=== PATIENT | male | born 1955 | race Caucasian/White ===

== ENCOUNTER 2016-06-29 11:06 | Inpatient (IN) | payer BC ==
[2016-06-29] MEDS ORDERED: HEPARIN SODIUM,PORCINE 5,000 UNIT/ML 1 ML VIAL IV PRN ×2 (11:09→19:34)
[2016-06-29] MEDS ORDERED: SODIUM CHLORIDE 0.9% 1,000 ML IV STA (11:09)
[2016-06-29] MEDS ORDERED: NITROGLYCERIN SL TABS 0.4 MG TAB SUBLINGUAL PRN (11:09)
[2016-06-29] MEDS ORDERED: MORPHINE SULFATE 4 MG/ML SYRINGE IV PRN (11:09)
[2016-06-29] MEDS ORDERED: NITROGLYCERIN SL TABS 0.4 MG TAB SUBLINGUAL STA (11:09)
[2016-06-29] MEDS ORDERED: ASPIRIN 81 MG CHEW PO STA (11:09)
[2016-06-29] MEDS ORDERED: HEPARIN SODIUM,PORCINE 5,000 UNIT/ML 1 ML VIAL IV ONE ×2 (11:09→19:34)
[2016-06-29] MEDS ORDERED: HEPARIN SODIUM,PORCINE/D5W PMX 25,000 UNIT in DEXTROSE/WATER 1 500ML.BAG IV SCH ×2 (11:15→20:00)
[2016-06-29] MEDS ORDERED: LIDOCAINE 2% INJ 20 MG/ML (20 ML MDV) ONE (11:16)
[2016-06-29] MEDS ORDERED: SODIUM CHLORIDE 0.9% 1,000 ML IV ONE (11:26)
--- NOTE | 2016-06-29 11:27 | ED ---
General Adult HPI - General Chief complaint: Chest Pain Stated complaint: Chest Pain Time Seen by Provider: 06/29/16 11:08 Source: patient, RN notes reviewed, old records reviewed Mode of arrival: EMS Limitations: no limitations - History of Present Illness Initial comments: This is a 61-year-old male year with severe anterior chest pain. Patient is brought in by EMS for chest pain, severe anterior chest pain and heaviness, diaphoresis and shortness of breath. Patient does have my blood pressure. No recent cardiac evaluation. Patient is an severe distress at this time, unable to give history secondary to significant pain. History obtained from EMS as well as prehospital EKG showing ST elevated VA - Related Data Home Medications Medication Instructions Recorded Confirmed ALPRAZolam [Xanax] 1 mg PO DAILY PRN 06/29/16 06/29/16 Terbinafine HCl [LamISIL] 250 mg PO DAILY 06/29/16 06/29/16 traZODone HCL 150 mg PO HS PRN 06/29/16 06/29/16 Allergies Allergy/AdvReac Type Severity Reaction Status Date / Time No Known Allergies Allergy Verified 06/29/16 11:21 Review of Systems ROS Statement: Those systems with pertinent positive or pertinent negative responses have been documented in the HPI. ROS Other: All systems not noted in ROS Statement are negative. Past Medical History Past Medical History: Hypertension Additional Past Medical History / Comment(s): toe fungal infection History of Any Multi-Drug Resistant Organisms: None Reported Past Surgical History: Hernia Repair Past Psychological History: Anxiety Smoking Status: Current every day smoker Past Alcohol Use History: None Reported Past Drug Use History: None Reported - Past Family History Father Family Medical History: COPD Additional Family Medical History / Comment(s): Father of emphysema at the age of 63yrs. Mother Family Medical History: No Reported History Additional Family Medical History / Comment(s): Mother lived to be 91 yrs old. General Exam Limitations: no limitations General appearance: alert, in no apparent distress, anxious Head exam: Present: atraumatic, normocephalic, normal inspection Eye exam: Present: normal appearance, PERRL, EOMI. Absent: scleral icterus, conjunctival injection, periorbital swelling ENT exam: Present: normal exam, mucous membranes moist Neck exam: Present: normal inspection. Absent: tenderness, meningismus, lymphadenopathy Respiratory exam: Present: normal lung sounds bilaterally. Absent: respiratory distress, wheezes, rales, rhonchi, stridor Cardiovascular Exam: Present: regular rate, normal rhythm, normal heart sounds. Absent: systolic murmur, diastolic murmur, rubs, gallop, clicks GI/Abdominal exam: Present: soft, normal bowel sounds. Absent: distended, tenderness, guarding, rebound, rigid Extremities exam: Present: normal inspection, full ROM, normal capillary refill. Absent: tenderness, pedal edema, joint swelling, calf tenderness Back exam: Present: normal inspection Neurological exam: Present: alert, oriented X3, CN II-XII intact Psychiatric exam: Present: normal affect, normal mood Skin exam: Present: warm, dry, intact, normal color. Absent: rash Course Vital Signs 06/29/16 06/29/16 11:05 11:15 Pulse Rate 46 L 46 L Respiratory 20 20 Rate Blood Pressure 124/65 122/66 O2 Sat by Pulse 96 96 Oximetry EKG Findings - EKG Comments: EKG Findings:: EKG shows sinus bradycardia rate of 53, TX normal, QRS wide, patient does have ST elevation in II, III, and F aVF, peak T waves in V3 V4 V5 V6 and ST depression in V1 and V2 Medical Decision Making - Medical Decision Making 61 year for evaluation of chest pain, elevated VA on EKG, patient admitted for the clinical laboratory aides teacher first cardiology intervention and treatment, anticoagulation, patient given aspirin - Lab Data Result diagrams: 07/02/16 06:26 07/02/16 06:26 Lab Results 06/29/16 06/29/16 06/29/16 Range/Units 11:17 11:17 11:17 WBC 14.0 H (3.8-10.6) k/uL RBC 5.03 (4.30-5.90) m/uL Hgb 15.8 (13.0-17.5) gm/dL Hct 46.2 (39.0-53.0) % MCV 91.8 (80.0-100.0) fL MCH 31.4 (25.0-35.0) pg MCHC 34.2 (31.0-37.0) g/dL RDW 13.0 (11.5-15.5) % Plt Count 210 (150-450) k/uL Neutrophils % 79 % Lymphocytes % 13 % Monocytes % 4 % Eosinophils % 1 % Basophils % 1 % Neutrophils # 11.0 H (1.3-7.7) k/uL Lymphocytes # 1.9 (1.0-4.8) k/uL Monocytes # 0.5 (0-1.0) k/uL Eosinophils # 0.2 (0-0.7) k/uL Basophils # 0.1 (0-0.2) k/uL PT (9.0-12.0) sec INR (<1.1) APTT (22.0-30.0) sec Sodium 142 (137-145) mmol/L Potassium 3.2 L (3.5-5.1) mmol/L Chloride 103 (98-107) mmol/L Carbon Dioxide 27 (22-30) mmol/L Anion Gap 12 mmol/L BUN 17 (9-20) mg/dL Creatinine 1.10 (0.66-1.25) mg/dL Est GFR (MDRD) Af Amer >60 (>60 ml/min/1.73 sqM) Est GFR (MDRD) Non-Af >60 (>60 ml/min/1.73 sqM) Glucose 202 H (74-99) mg/dL Estimated Ave Glu mg/dL mg/dL Hemoglobin A1c (4.2-6.1) % Calcium 9.4 (8.4-10.2) mg/dL Total Bilirubin 0.7 (0.2-1.3) mg/dL AST 43 (17-59) U/L ALT 84 H (21-72) U/L Alkaline Phosphatase 75 (38-126) U/L Total Creatine Kinase 193 H (55-170) U/L CK-MB (CK-2) 1.6 (0.0-2.4) ng/mL CK-MB (CK-2) Rel Index 0.8 Troponin I <0.012 (0.000-0.034) ng/mL Total Protein 7.0 (6.3-8.2) g/dL Albumin 4.2 (3.5-5.0) g/dL 06/29/16 06/29/16 Range/Units 11:17 11:17 WBC (3.8-10.6) k/uL RBC (4.30-5.90) m/uL Hgb (13.0-17.5) gm/dL Hct (39.0-53.0) % MCV (80.0-100.0) fL MCH (25.0-35.0) pg MCHC (31.0-37.0) g/dL RDW (11.5-15.5) % Plt Count (150-450) k/uL Neutrophils % % Lymphocytes % % Monocytes % % Eosinophils % % Basophils % % Neutrophils # (1.3-7.7) k/uL Lymphocytes # (1.0-4.8) k/uL Monocytes # (0-1.0) k/uL Eosinophils # (0-0.7) k/uL Basophils # (0-0.2) k/uL PT 11.0 (9.0-12.0) sec INR 1.1 (<1.1) APTT 21.4 L (22.0-30.0) sec Sodium (137-145) mmol/L Potassium (3.5-5.1) mmol/L Chloride (98-107) mmol/L Carbon Dioxide (22-30) mmol/L Anion Gap mmol/L BUN (9-20) mg/dL Creatinine (0.66-1.25) mg/dL Est GFR (MDRD) Af Amer (>60 ml/min/1.73 sqM) Est GFR (MDRD) Non-Af (>60 ml/min/1.73 sqM) Glucose (74-99) mg/dL Estimated Ave Glu mg/dL 128 mg/dL Hemoglobin A1c 6.1 (4.2-6.1) % Calcium (8.4-10.2) mg/dL Total Bilirubin (0.2-1.3) mg/dL AST (17-59) U/L ALT (21-72) U/L Alkaline Phosphatase (38-126) U/L Total Creatine Kinase (55-170) U/L CK-MB (CK-2) (0.0-2.4) ng/mL CK-MB (CK-2) Rel Index Troponin I (0.000-0.034) ng/mL Total Protein (6.3-8.2) g/dL Albumin (3.5-5.0) g/dL - Radiology Data Radiology results: report reviewed (Chest x-ray is negative for acute disease), image reviewed Critical Care Time Critical Care Time: Yes Total Critical Care Time: 31 Disposition Clinical Impression: ST elevation myocardial infarction (STEMI) Disposition: ADMITTED IP TO THIS HOSP Condition: Serious
[2016-06-29] MEDS ORDERED: LIDOCAINE 2% INJ 20 MG/ML SQ ONE (11:31)
[2016-06-29] MEDS ORDERED: fentaNYL (PF) 50 MCG/ML 2 ML AMP ONE (11:39)
[2016-06-29] MEDS ORDERED: fentaNYL (PF) 50 MCG/ML 2 ML AMP IV ONE (11:40)
[2016-06-29] MEDS ORDERED: BIVALIRUDIN BOLUS 250 MG/50 ML IV ONE (11:42)
[2016-06-29] MEDS ORDERED: BIVALIRUDIN 250 MG in SODIUM CHLORIDE 0.9% 50 ML IV ONE ×2 (11:43→12:14)
[2016-06-29 11:45] LABS: ALT 84 U/L (21-72); AST 43 U/L (17-59); Alkaline Phosphatase 75 U/L (38-126); Anion Gap 12 mmol/L; Blood Urea Nitrogen 17 mg/dL (9-20); Calcium 9.4 mg/dL (8.4-10.2); Carbon Dioxide 27 mmol/L (22-30); Chloride 103 mmol/L (98-107); Glucose 202 mg/dL (74-99); Non-African American GFR(MDRD) >60 (>60 ml/min/1.73 sqM); Potassium 3.2 mmol/L (3.5-5.1); Sodium 142 mmol/L (137-145); Total Bilirubin 0.7 mg/dL (0.2-1.3)
[2016-06-29 11:48] LABS: Basophils # (A) 0.1 k/uL (0-0.2); Basophils % (A) 1 %; CH 31.7; CHCM 34.6; Eosinophils # (A) 0.2 k/uL (0-0.7); Eosinophils % (A) 1 %; HCT 46.2 % (39.0-53.0); HDW 2.79; HGB 15.8 gm/dL (13.0-17.5); Luc # (Auto) 0.34; Luc % (Auto) 2; Lymphocytes # (A) 1.9 k/uL (1.0-4.8); Lymphocytes % (A) 13 %; MCH 31.4 pg (25.0-35.0); MCHC 34.2 g/dL (31.0-37.0); MCV 91.8 fL (80.0-100.0); Mean Platelet Volume 8.3; Monocytes # (A) 0.5 k/uL (0-1.0); Monocytes % (A) 4 %; Neutrophils % (A) 79 %; RBC 5.03 m/uL (4.30-5.90); WBC (Perox) 13.61
[2016-06-29 11:49] LABS: INR 1.1 (<1.1)
[2016-06-29] MEDS ORDERED: METOPROLOL TARTRATE 5 MG/5 ML VIAL IVP ONE (11:52)
[2016-06-29 11:54] LABS: Creatine Kinase 193 U/L (55-170)
[2016-06-29] MEDS: METOPROLOL TARTRATE 5 MG/5 ML VIAL IVP ONE ×2 (11:54→12:38)
[2016-06-29 12:06] LABS: Creatine Kinase MB 1.6 ng/mL (0.0-2.4); Troponin I <0.012 ng/mL (0.000-0.034)
[2016-06-29] MEDS ORDERED: NOREPINEPHRINE 4 MG in SODIUM CHLORIDE 0.9% 250 ML IV ONE (12:07)
[2016-06-29] MEDS ORDERED: PRASUGREL 10 MG TAB ONE (12:22)
[2016-06-29] MEDS ORDERED: PRASUGREL 10 MG TAB PO ONE (12:24)
[2016-06-29] MEDS ORDERED: NITROGLYCERIN 1000MCG/10ML SYRINGE INTRACORON ONE (12:30)
[2016-06-29] MEDS ORDERED: IOHEXOL 350 MG/ML 100 ML BOTTLE INJ ONE (12:39)
[2016-06-29] MEDS ORDERED: ATROPINE SULFATE 0.1 MG/ML 10ML SYRINGE IV PRN (12:46)
[2016-06-29] MEDS ORDERED: RX INFO: IV CONTRAST WAS GIVEN 1 EACH MISC MISCELLANE PRN (12:46)
[2016-06-29] MEDS ORDERED: FAMOTIDINE 20 MG TAB PO PRN (12:46)
[2016-06-29] MEDS ORDERED: HYDROmorphone 1 MG/ML 1 ML SYRINGE IVP PRN (12:46)
[2016-06-29] MEDS ORDERED: MAG HYDROX/AL HYDROX/SIMETH 30 ML CUP PO PRN (12:46)
[2016-06-29 12:52] LABS: Partial Thromboplastin Time 21.4 sec (22.0-30.0)
[2016-06-29] MEDS ORDERED: NON-FORMULARY DRUG (Alprazolam [Xanax] 1 MG) PO PRN (12:56)
--- NOTE | 2016-06-29 12:56 | XR ---
EXAMINATION TYPE: XR chest 1V portable DATE OF EXAM: 06/29/2016 12:52 PM COMPARISON: 04/01/2012 HISTORY: Chest pain TECHNIQUE: Single frontal view of the chest is obtained. FINDINGS: There is no focal air space opacity, pleural effusion, or pneumothorax seen. The cardiac silhouette size is within normal limits. The osseous structures are intact. Linear density right mi dlung typical of scar or atelectasis. Arthropathy of the shoulders IMPRESSION: No acute process.
[2016-06-29 13:07] LABS: Glucose,Whole Blood 180 mg/dL (75-99)
[2016-06-29] MEDS: METOPROLOL TARTRATE 25 MG TAB PO SCH ×2 (13:27→21:54)
[2016-06-29] MEDS: SODIUM CHLORIDE 0.9% 1,000 ML IV SCH ×3 (13:28→23:50)
--- NOTE | 2016-06-29 15:49 | CONS ---
DATE OF CONSULTATION: Patient is a 61-year-old gentleman. Referring physician Dr. Myles. The patient is going to be admitted to Dr. Deras's service. Patient is a known patient of long-standing history of depression and has been on trazodone 150 mg along with Xanax. Patient is a smoker, smokes less than 1 pack of cigarettes and lives alone by himself. Patient started having chest heaviness and tightness and some weakness, not feeling well at 9:30 and presented to the emergency room close to 11:00. Patient's EKG shows acute ST elevations in inferior leads consistent with acute inferior myocardial wall infarction. With stable vital signs patient is not complaining of severe pain, but feels very weak and tired. Patient is not known to be diabetic and claims he has been known to have hypertension, but I do not see any medications for hypertension he is taking currently. Patient does not have any strong family history of coronary artery disease. No history of diabetes and patient's coronary risk factors are patient's age, history of smoking, questionable hypertension, do not know about hyperlipidemia. No family history of premature coronary artery disease. Past history is unremarkable other than history of smoking, history of depression and questionable history of hypertension. Do not know about hyperlipidemia. REVIEW OF SYSTEMS: Essentially unremarkable other than what is stated in the presenting illness. Physical examination revealed well-developed, well-nourished 61-year-old gentleman, who appears weak and tired with mild distress and does not appear to be diaphoretic with stable vital signs with a pulse rate of 54 beats per minute and regular, blood pressure 122/70, respirations of 18. HEAD: Normocephalic. HEENT unremarkable. Neck is supple. No thyroid enlargement. No bruit noted. Good carotid upstroke bilaterally. Chest is symmetrical. CARDIAC EXAMINATION: S1 and S2. S4 gallop is noted. No significant murmurs and S2. Lungs are clinically clear to auscultation and percussion. Abdomen is soft, no organomegaly. Active bowel sounds. EXTREMITIES: Peripheral pulses. No pedal edema. ASSURANCE ANALYST examination grossly within normal limits. EKG shows normal sinus rhythm with ST elevation in inferior leads, consistent with inferior myocardial infarction. ASSESSMENT: 1. Acute inferior myocardial infarction. 2. History of hypertension. 3. History of depression. 4. History of long-standing history of smoking less than 1 pack of cigarettes a day. RECOMMENDATIONS: Proceed with cardiac catheterization and primary angioplasty of the involved vessel.
[2016-06-29 16:09] LABS: Hemoglobin A1C 6.1 % (4.2-6.1)
[2016-06-29] MEDS: ALPRAZolam 0.25 MG TAB PO PRN (19:51)
--- NOTE | 2016-06-29 20:15 | HP ---
DATE OF ADMISSION: Patient is a very pleasant 61-year-old gentleman who came in with complaint of chest pain along with associated diaphoresis associated with nausea and ( ). Patient was found to have ST elevations in the inferior leads including lead II, III and aVF. Patient underwent cardiac catheterization and had three stents to RCA. Patient was bradycardic because of the infarction in the RCA territory. Poststenting the patient became tachycardic and patient was started on metoprolol now. Patient ( ) metoprolol ( ) mildly tachycardic. Patient is mildly tachycardic. Patient underwent cardiac catheterization through right groin area and right femoral vasculature. Patient denied any fevers or chills. Patient denied any nausea, vomiting. Patient just ( ) at this point of time. Patient denied any shortness of breath. REVIEW OF SYSTEMS: CONSTITUTIONAL: No fever, no malaise, no fatigue. HEENT: No recent visual problems or hearing problems. Denied any sore throat. CARDIOVASCULAR: No chest pain, orthopnea, PND, no palpitations, no syncope. PULMONARY: No shortness of breath, no cough, no hemoptysis. GASTROINTESTINAL: No diarrhea, no nausea, no vomiting, no abdominal pain. Normoactive bowel sounds. NEUROLOGICAL: No headaches, no weakness, no numbness. HEMATOLOGICAL: Denies any bleeding or petechiae. GENITOURINARY: Denies any burning micturition, frequency, or urgency. MUSCULOSKELETAL/RHEUMATOLOGICAL: Denies any joint pain, swelling, or any muscle pain. ENDOCRINE: Denies any polyuria or polydipsia. The rest of the 14 point review of systems is negative. PAST MEDICAL HISTORY: Significant for hypertension, hernia repair in the past, anxiety disorder. SOCIAL HISTORY: The patient does smoke a pack per day. Denied any alcohol abuse or any drug abuse. FAMILY HISTORY: Significant for coronary artery disease. PHYSICAL EXAMINATION: VITAL SIGNS: Temperature afebrile, pulse of 46 on admission, now around 106, respiratory rate 20, saturation 95% on room air. GENERAL: The patient is alert and oriented x3, not in any acute distress. Well developed, well nourished. HEENT: Pupils are round and equally reacting to light. EOMI. No scleral icterus. No conjunctival pallor. Normocephalic, atraumatic. No pharyngeal erythema. No thyromegaly. CARDIOVASCULAR: S1 and S2 present. No murmurs, rubs, or gallops. PULMONARY: Chest is clear to auscultation, no wheezing or crackles. ABDOMEN: Soft, nontender, nondistended, normoactive bowel sounds. No palpable organomegaly. MUSCULOSKELETAL: No joint swelling or deformity. EXTREMITIES: No cyanosis, clubbing, or pedal edema. NEUROLOGICAL: Gross neurological examination did not reveal any focal deficits. SKIN: No rashes. LABORATORY DATA: CBC and CMP essentially within normal limits. The patient has elevated troponins. EKG as mentioned above. ASSESSMENT AND PLAN: 1. ( ) myocardial infarction status post stenting of right coronary artery and patient is presenting on dual antiplatelet therapy, which includes prasugrel and metoprolol and statin. Patient is also on isuprel for borderline blood pressures. 2. Hypertension. 3. Anxiety disorder. 4. Hyperlipemia. PLAN: Continue with above mentioned medications. Continue to monitor closely. Continue with beta bianca. Obtain an echocardiogram.
[2016-06-29] MEDS: DILTIAZEM 125 MG in SODIUM CHLORIDE 0.9% 100 ML IV SCH (20:54)
[2016-06-29] MEDS: ZOLPIDEM 5 MG TAB PO PRN (22:03)
[2016-06-29] MEDS ORDERED: Magnesium Replacement Protocol 1 EACH MISC MISCELLANE PRN (23:39)
[2016-06-29] MEDS: MAGNESIUM SULFATE-D5W PMX 1 GM in DEXTROSE/WATER 1 100ML.BAG IVPB SCH (23:50)
[2016-06-30] MEDS: ALPRAZolam 0.25 MG TAB PO PRN ×2 (00:21→20:07)
[2016-06-30] MEDS: MAGNESIUM SULFATE-D5W PMX 1 GM in DEXTROSE/WATER 1 100ML.BAG IVPB SCH (01:00)
[2016-06-30 03:52] LABS: Basophils % (A) 0 %; Eosinophils # (A) 0.1 k/uL (0-0.7); Eosinophils % (A) 1 %; HCT 40.3 % (39.0-53.0); HDW 2.63; HGB 13.6 gm/dL (13.0-17.5); Luc # (Auto) 0.17; Luc % (Auto) 2; Lymphocytes # (A) 1.5 k/uL (1.0-4.8); Lymphocytes % (A) 17 %; MCH 30.9 pg (25.0-35.0); MCHC 33.7 g/dL (31.0-37.0); MCV 91.5 fL (80.0-100.0); Mean Platelet Volume 7.9; Monocytes # (A) 0.6 k/uL (0-1.0); Monocytes % (A) 6 %; Neutrophils # (A) 6.9 k/uL (1.3-7.7); Neutrophils % (A) 75 %; RDW 13.2 % (11.5-15.5); WBC 9.2 k/uL (3.8-10.6); WBC (Perox) 9.82
[2016-06-30 04:13] LABS: Anion Gap 8 mmol/L; Blood Urea Nitrogen 22 mg/dL (9-20); Calcium 8.5 mg/dL (8.4-10.2); Carbon Dioxide 28 mmol/L (22-30); Chloride 104 mmol/L (98-107); Cholesterol 181 mg/dL (<200); Glucose 133 mg/dL (74-99); HDL Cholesterol 30 mg/dL (40-60); Magnesium 2.3 mg/dL (1.6-2.3); Non-African American GFR(MDRD) >60 (>60 ml/min/1.73 sqM); Potassium 3.6 mmol/L (3.5-5.1); Sodium 140 mmol/L (137-145); Triglycerides 205 mg/dL (<150)
[2016-06-30] MEDS ORDERED: HEPARIN SODIUM,PORCINE 5,000 UNIT/ML 1 ML VIAL IV STA (04:14)
[2016-06-30] MEDS ORDERED: Potassium Replacement Protocol 1 EACH MISC MISCELLANE PRN (04:20)
[2016-06-30] MEDS: SODIUM CHLORIDE 0.9% 1,000 ML IV SCH ×2 (04:27→15:04)
[2016-06-30] MEDS ORDERED: POTASSIUM CHLORIDE ER 20 MEQ TAB.ER PO SCH (05:00)
[2016-06-30] MEDS: ATORVASTATIN 80 MG TAB PO SCH (08:00)
[2016-06-30] MEDS: METOPROLOL TARTRATE 25 MG TAB PO SCH ×2 (08:01→20:07)
[2016-06-30] MEDS: PRASUGREL 10 MG TAB PO SCH (08:01)
[2016-06-30] MEDS: ASPIRIN 325 MG TAB PO SCH (08:01)
--- NOTE | 2016-06-30 08:04 | CC ---
DATE OF SERVICE: Referring physicians are Dr. Deras and Dr. Myles. Patient presented with acute inferior myocardial infarction to the emergency room with ST elevation in the inferior leads. Patient is a smoker and hypertensive, has been taking amlodipine 5 mg p.o. daily along with trazodone and Xanax. Patient was brought to the laborer laboratory for primary angioplasty and patient was informed of all the risks and benefits of the procedure along with I spoke with the son at length. Patient lives alone. PROCEDURE: Under local anesthesia, the femoral artery was cannulated using Seldinger technique. Patient was given conscious sedation, lasting about 1 hour 10 minutes total until the procedure is completed. Patient tolerated the procedure very well. After obtaining the femoral axis and 6 [place] sheath is placed and we proceeded with a diagnostic cardiac catheterization followed by angioplasty and stenting of the right coronary in multiple locations including ( ) that was noted in the distal half of the right coronary which is a large caliber blood vessel, which is totally occluded in the midsection. Patient tolerated the procedure very well. HEMODYNAMIC DATA: Aortic pressure noted to be 119/62 with a mean pressure of 179. Left ventricular end-diastolic pressure following coronary arteriography was noted to be 14 to 16 mmHg. There was no gradient across the aortic valve. Left ventriculogram was not performed today to reduce the contrast load. Patient has a large amount of thrombus requiring small dose of Levophed during the angioplasty. Multiple stents, a total of 4 stents, were done. Large-caliber stented ranging between 4.5 to 5 and dilated with four NC balloon, 5.0, 15 mm to 20 ( ) to expand the stent. CORONARY ANGIOGRAMS: Left main coronary artery is of normal caliber, free of any atherosclerotic occlusive disease. Left anterior descending is a good caliber blood vessel atherosclerotic occlusive disease. Left circumflex is a good caliber vessel, nondominant, free of any atherosclerotic occlusive disease. RIGHT CORONARY ARTERY: Right coronary artery is a dominant, excellent caliber blood vessel noted to have long stenosis in the midsection with total occlusion in the midsection without any antegrade flow. No collaterals were seen. ASSESSMENT: Acute inferior myocardial wall infarction with total occlusion of the mid right coronary. Will proceed with angioplasty and stenting of the right coronary.
--- NOTE | 2016-06-30 08:11 | PTCA ---
DATE OF SERVICE: PROCEDURE: Angioplasty and stent placement report ANGIOPLASTY NUMBER: [id number] Following diagnostic cardiac catheterization we proceeded with angioplasty using a 6 Arabic right coronary guide. Patient is under conscious sedation still. I obtained Eigon shot of right coronary and proceeded with angioplasty using a whisper J-wire which was advanced to the distal RCA. Over the wire advanced trek balloon 2.5, 15 mm dilated to 8 atmospheres followed by large stealth 4.5, 28 mm was placed in the midsection and deployed at 16 atmospheres. Followed by ( ) 5.0, 24 mm deployed in the proximal portion proximal to the first stent because of the diseased portion covering up to the normal segment proximally. Other stent 4.5, 24 mm was placed distally covering the spontaneous dissection and thrombus noted in that section. Then we postdilated with a NC trek balloon 5.0, 15 mm to 20 atmospheres to expand the stented segment in the midsection which was not fully expanded. Patient tolerated the procedure very well. Patient has received Angiomax bolus and infusion followed by 60 mg Effient in addition to aspirin. ASSESSMENT: Successful dilatation with totally occluded right coronary reduced to 0% residual stenosis with excellent angiographic results.
--- NOTE | 2016-06-30 08:51 | ECHOF ---
Referral Reason: MEASUREMENTS -------- HEIGHT: 193.0 cm WEIGHT: 108.9 kg BP: 122/86 IVSd: 1.0 cm (0.6 - 1.1) LVIDd: 4.8 cm (3.9 - 5.3) LVPWd: 1.2 cm (0.6 - 1.1) IVSs: 1.5 cm LVIDs: 3.7 cm LVPWs: 1.2 cm Ao Diam: 3.4 cm (2.0 - 3.7) AV Cusp: 2.3 cm (1.5 - 2.6) LA Diam: 2.9 cm (2.7 - 3.8) MV EXCURSION: 24.707 mm (> 18.000) MV EF SLOPE: 144 mm/s (70 - 150) EPSS: 0.6 cm MV E Tony: 0.61 m/s MV DecT: 169 ms MV A Tony: 0.30 m/s MV E/A Ratio: 2.03 RAP: 15.00 mmHg RVSP: 20.99 mmHg FINDINGS -------- Resting tachycardia (HR>100bpm). This was a technically adequate study. Left ventricular wall thickness is normal. There is severe global hypokinesis of LV . Overall left ventricular systolic function is severely impaired with, an EF between 20 - 25 %. Inferiorlateral Hypokinesis which is severe. The right ventricle is normal in size and function. The left atrium is normal in size. The right atrium is normal in size. The aortic valve is trileaflet, and appears structurally normal. No aortic stenosis or regurgitation. There is trace mitral regurgitation. Trace tricuspid regurgitation present. The right ventricular systolic pressure, as measured by Doppler, is 20.99mmHg. Pulmonic valve appears structurally normal. The aortic root size is normal. The pericardium is normal. CONCLUSIONS -------- 1. Resting tachycardia (HR>100bpm). 2. There is trace mitral regurgitation. 3. Trace tricuspid regurgitation present. 4. The right ventricular systolic pressure, as measured by Doppler, is 20.99mmHg. 5. Pulmonic valve appears structurally normal. 6. The aortic root size is normal. 7. The pericardium is normal. 8. This was a technically adequate study. 9. Left ventricular wall thickness is normal. 10. Overall left ventricular systolic function is severely impaired with, an EF between 20 - 25 %. 11. Inferiorlateral severs Hypokinesis 12. The right ventricle is normal in size and function. 13. The left atrium is normal in size. 14. The right atrium is normal in size. 15. The aortic valve is trileaflet, and appears structurally normal. No aortic stenosis or regurgitation. ETCHER APPRENTICE PHOTOENGRAVING: Emily Sarabia RDCS
[2016-06-30] MEDS: POTASSIUM CHLORIDE 10 MEQ, LIDOCAINE 2% INJ 10 MG in SODIUM CHLORIDE 0.9% 100 ML IV SCH ×2 (13:04→15:04)
--- NOTE | 2016-06-30 13:05 | P.PN ---
Subjective Principal diagnosis: Acute MO This is a pleasant 61-year-old gentleman who presented to the hospital with a chest discomfort and was diagnosed with acute inferior MO. He underwent heart catheterization and stenting of the right coronary artery by Dr. Salas Duran. He is asymptomatic and denies having any chest pain or discomfort or difficulty breathing. The echocardiogram showed severely impaired FUNCTION with an ejection fraction of 20%. I am going to continue the patient on the current medical treatment which included dual antiplatelet therapy and statin. He can be transferred to the selective unit. Objective - Vital Signs Vital signs: Vital Signs Temp 98.4 F 06/30/16 09:00 Pulse 67 06/30/16 12:00 Resp 24 06/30/16 12:00 BP 113/75 06/30/16 12:00 Pulse Ox 95 06/30/16 12:00 Intake & Output 06/29/16 06/30/16 06/30/16 18:59 06:59 18:59 Intake Total 1214.82 3292.667 1560 Output Total 450 400 150 Balance 764.82 2892.667 1410 Weight 113.3 kg 113.3 kg Intake: IV 1214.82 2400 1200 Sodium Chloride 0.9% 1, 1000 2400 1200 000 ml @ 200 mls/hr IV . Q5H TOM Rx#:[id number] Intake, IV Titration 412.667 Amount Diltiazem 125 mg In 58.000 Sodium Chloride 0.9% 100 ml @ 10 MG/HR 10 mls/hr IV .[id number] TOM Rx#: [id number] Heparin Sodium,Porcine/ 154.667 D5w Pmx 25,000 unit In Dextrose/Water 1 500ml. bag @ 9.186 UNITS/KG/HR 20 mls/hr IV .Q24H TOM Rx #:[id number] Magnesium Sulfate-D5w Pmx 200 1 gm In Dextrose/Water 1 100ml.bag @ 100 mls/hr IVPB Q1H TOM Rx#: [id number] Oral 480 360 Output: Urine 450 400 150 Other: Voiding Method Urinal Urinal Urinal # Voids 1 1 # Bowel Movements 1 - Constitutional General appearance: Present: no acute distress - Respiratory Respiratory: bilateral: CTA - Cardiovascular Rhythm: regular Heart sounds: normal: S1, S2 - Labs CBC & Chem 7: 06/30/16 03:37 06/30/16 07:35 Labs: Abnormal Lab Results - Last 24 Hours (Table) 06/29/16 06/29/16 06/29/16 Range/Units 13:05 16:46 23:20 APTT (22.0-30.0) sec BUN (9-20) mg/dL Glucose (74-99) mg/dL POC Glucose (mg/dL) 180 H (75-99) mg/dL Total Creatine Kinase 5435 H 4400 H (55-170) U/L CK-MB (CK-2) 349.0 H* 199.0 H* (0.0-2.4) ng/mL Troponin I 211.000 H* 167.000 H* (0.000-0.034) ng/mL Triglycerides (<150) mg/dL LDL Cholesterol, Calc (0-99) mg/dL HDL Cholesterol (40-60) mg/dL 06/30/16 06/30/16 Range/Units 03:37 11:05 APTT 31.7 H (22.0-30.0) sec BUN 22 H (9-20) mg/dL Glucose 133 H (74-99) mg/dL POC Glucose (mg/dL) (75-99) mg/dL Total Creatine Kinase (55-170) U/L CK-MB (CK-2) (0.0-2.4) ng/mL Troponin I (0.000-0.034) ng/mL Triglycerides 205 H (<150) mg/dL LDL Cholesterol, Calc 110 H (0-99) mg/dL HDL Cholesterol 30 L (40-60) mg/dL Assessment and Plan Plan: Assessment Acute inferior MO Status post PCI of the RCA Severe cardiomyopathy, ischemic Multiple comorbid conditions Plan Continue the patient on the current medical treatment Transferred to selective unit Follow-up with the patient
[2016-06-30] MEDS ORDERED: ACETAMINOPHEN TAB 325 MG TAB PO PRN (13:09)
[2016-06-30] MEDS: DILTIAZEM 125 MG in SODIUM CHLORIDE 0.9% 100 ML IV SCH (15:04)
--- NOTE | 2016-06-30 17:30 | PN ---
Patient is a 61-year-old admitted ST elevation myocardial infarction and underwent stenting of right coronary artery. Patient is clinically doing well and patient's ejection fraction is around 20 to 25% which probably is acute systolic dysfunction from acute myocardial infarction. Although patient's congestive heart failure is well compensated at this point of time. Patient was actually receiving IV fluids until today morning, which were discontinued. REVIEW OF SYSTEMS: CARDIOVASCULAR: No chest pain, no orthopnea, no PND, no palpitations. PULMONARY: Denied any shortness of breath. No cough or hemoptysis. GASTROINTESTINAL: No diarrhea, nausea or vomiting. No abdominal pain. Normoactive bowel sounds. NEUROLOGIC: No headaches, no weakness, no numbness. Medications were reviewed. PHYSICAL EXAMINATION: VITAL SIGNS: Temperature 98.4, pulse of 74, respiratory rate of 22, blood pressure is 113/87, saturating at 99% on room air. GENERAL: The patient is alert and oriented x3, not in any acute distress. Well developed, well nourished. HEENT: Pupils are round and equally reacting to light. EOMI. No scleral icterus. No conjunctival pallor. Normocephalic, atraumatic. No pharyngeal erythema. No thyromegaly. CARDIOVASCULAR: S1 and S2 present. No murmurs, rubs, or gallops. PULMONARY: Chest is clear to auscultation, no wheezing or crackles. ABDOMEN: Soft, nontender, nondistended, normoactive bowel sounds. No palpable organomegaly. MUSCULOSKELETAL: No joint swelling or deformity. EXTREMITIES: No cyanosis, clubbing, or pedal edema. NEUROLOGICAL: Gross neurological examination did not reveal any focal deficits. SKIN: No rashes. LABORATORY DATA: CBC, CMP, essentially within normal limits and improved creatinine. LDL is 110. ASSESSMENT AND PLAN: 1. Acute myocardial infarction, ST elevation myocardial infarction, status post stenting of right coronary artery. 2. Hypertension. 3. Congestive heart failure, acute systolic dysfunction probably from acute myocardial infarction, well compensated without any exacerbation. 4. Anxiety disorder. 5. Hyperlipidemia. Plan is to continue with present medications. Continue to follow the patient. Possibility of discharge on Saturday. Hopefully his low ejection fraction is temporary from stunned myocardium due STEMI.
[2016-06-30] MEDS: ZOLPIDEM 5 MG TAB PO PRN (23:07)
[2016-07-01] MEDS: PRASUGREL 10 MG TAB PO SCH (07:50)
[2016-07-01] MEDS: METOPROLOL TARTRATE 25 MG TAB PO SCH ×2 (07:51→20:29)
[2016-07-01] MEDS: ATORVASTATIN 80 MG TAB PO SCH (07:51)
[2016-07-01] MEDS: ASPIRIN 325 MG TAB PO SCH (09:04)
[2016-07-01] MEDS: LISINOPRIL 10 MG TAB PO SCH (09:04)
[2016-07-01] MEDS ORDERED: Potassium Replacement Protocol 1 EACH MISC MISCELLANE PRN (09:52)
[2016-07-01] MEDS: POTASSIUM CHLORIDE ER 20 MEQ TAB.ER PO SCH ×3 (10:44→13:25)
--- NOTE | 2016-07-01 13:12 | P.PN ---
Subjective Principal diagnosis: Acute TN This is a pleasant 61-year-old gentleman who presented to the hospital with a chest discomfort and was diagnosed with acute inferior TN. He underwent heart catheterization and stenting of the right coronary artery by Dr. Salas Duran. He is asymptomatic and denies having any chest pain or discomfort or difficulty breathing. The echocardiogram showed severely impaired FUNCTION with an ejection fraction of 20%. I am going to continue the patient on the current medical treatment which included dual antiplatelet therapy and statin. I would add aldosterone antagonist to the current medical treatment in view of the cardiomyopathy. We will continue following up with the patient. Objective - Vital Signs Vital signs: Vital Signs Temp 98.9 F 07/01/16 07:48 Pulse 86 07/01/16 07:48 Resp 16 07/01/16 07:55 BP 112/65 07/01/16 07:48 Pulse Ox 95 07/01/16 07:48 Intake & Output 06/30/16 07/01/16 07/01/16 18:59 06:59 18:59 Intake Total 1635 20 120 Output Total 300 Balance 1335 20 120 Weight 113.3 kg 117 kg Intake: IV 1275 20 0.9% flush 10 mls 20 Sodium Chloride 0.9% 1, 1275 000 ml @ 200 mls/hr IV . Q5H TOM Rx#:[id number] Oral 360 120 Output: Urine 300 Other: Voiding Method Urinal Toilet Toilet Urinal Urinal # Voids 1 1 # Bowel Movements 1 - Constitutional General appearance: Present: no acute distress - Respiratory Respiratory: bilateral: CTA - Cardiovascular Rhythm: regular Heart sounds: normal: S1, S2 - Labs CBC & Chem 7: 07/01/16 05:27 07/01/16 08:33 Assessment and Plan Plan: Assessment Acute inferior TN Status post PCI of the RCA Severe cardiomyopathy, ischemic Multiple comorbid conditions Plan Continue the patient on the current medical treatment Add aldosterone antagonist Follow-up with the patient
[2016-07-01] MEDS: ZOLPIDEM 5 MG TAB PO PRN (20:28)
[2016-07-01] MEDS: ALPRAZolam 0.25 MG TAB PO PRN (20:29)
[2016-07-02 07:29] LABS: ALT 80 U/L (21-72); AST 101 U/L (17-59); Alkaline Phosphatase 54 U/L (38-126); Anion Gap 9 mmol/L; Blood Urea Nitrogen 23 mg/dL (9-20); Calcium 8.6 mg/dL (8.4-10.2); Carbon Dioxide 26 mmol/L (22-30); Chloride 107 mmol/L (98-107); Glucose 101 mg/dL (74-99); Non-African American GFR(MDRD) >60 (>60 ml/min/1.73 sqM); Potassium 3.8 mmol/L (3.5-5.1); Sodium 142 mmol/L (137-145); Total Bilirubin 1.7 mg/dL (0.2-1.3); Total Protein 6.1 g/dL (6.3-8.2)
[2016-07-02] MEDS: PRASUGREL 10 MG TAB PO SCH (08:50)
[2016-07-02] MEDS: ATORVASTATIN 80 MG TAB PO SCH (08:50)
[2016-07-02] MEDS: METOPROLOL TARTRATE 25 MG TAB PO SCH ×2 (08:50→21:22)
[2016-07-02] MEDS: ASPIRIN 325 MG TAB PO SCH (08:50)
[2016-07-02] MEDS: LISINOPRIL 10 MG TAB PO SCH (08:51)
[2016-07-02] MEDS ORDERED: SPIRONOLACTONE 25 MG TAB PO SCH (09:00)
--- NOTE | 2016-07-02 11:03 | PN ---
Greg is a 61-year-old gentleman who is admitted to the hospital with acute inferior wall myocardial infarction. He underwent emergent cardiac catheterization and angioplasty of right coronary artery. I am seeing him for the first time today. He has had runs of nonsustained VT, but he is doing well otherwise. He denies chest pain, difficulty in breathing, palpitations, dizziness, or syncope. He is on beta blockers, aspirin, Lipitor, Zestril, sublingual nitroglycerin, Aldactone and placarbil. On exam today, he is comfortable at rest. Vital signs are stable. There is no jugular venous distention. Chest exam reveals good air entry bilaterally. Heart exam reveals first and second heart sounds. No gallop. No murmur. Abdomen is soft, nontender. Exam of extremities did not reveal edema. Peripheral pulses are felt. Labs show a potassium of 3.8. Creatinine is 0.9. Hemoglobin is 13.6, platelet count is 165. An echocardiogram showed severe LV systolic dysfunction with an ejection fraction of 20% and 25%. ASSESSMENT: 1. Acute inferior wall myocardial infarction status post cardiac catheterization and angioplasty. 2. Ischemic cardiomyopathy with severe left ventricular systolic dysfunction. 3. Nonsustained ventricular tachycardia. PLAN: I am going to continue the patient on current optimal medical therapy and have a life vest on him on discharge.
--- NOTE | 2016-07-02 11:20 | PN ---
DATE OF SERVICE: 07/01/2016 Patient is a 61-year-old admitted ST elevation myocardial infarction and underwent stenting of right coronary artery. Patient is clinically doing well and patient's ejection fraction is around 20 to 25% which probably is acute systolic dysfunction from acute myocardial infarction. Although patient's congestive heart failure is well compensated at this point of time. Patient was actually receiving IV fluids until today morning, which were discontinued. REVIEW OF SYSTEMS: CARDIOVASCULAR: No chest pain, no orthopnea, no PND, no palpitations. PULMONARY: Denied any shortness of breath. No cough or hemoptysis. GASTROINTESTINAL: No diarrhea, nausea or vomiting. No abdominal pain. Normoactive bowel sounds. NEUROLOGIC: No headaches, no weakness, no numbness. Medications were reviewed. PHYSICAL EXAMINATION: VITAL SIGNS: Temperature 97.7, pulse of 69, respiratory rate of 18, blood pressure is 110/78, saturating at 97% on room air. GENERAL: The patient is alert and oriented x3, not in any acute distress. Well developed, well nourished. HEENT: Pupils are round and equally reacting to light. EOMI. No scleral icterus. No conjunctival pallor. Normocephalic, atraumatic. No pharyngeal erythema. No thyromegaly. CARDIOVASCULAR: S1 and S2 present. No murmurs, rubs, or gallops. PULMONARY: Chest is clear to auscultation, no wheezing or crackles. ABDOMEN: Soft, nontender, nondistended, normoactive bowel sounds. No palpable organomegaly. MUSCULOSKELETAL: No joint swelling or deformity. EXTREMITIES: No cyanosis, clubbing, or pedal edema. NEUROLOGICAL: Gross neurological examination did not reveal any focal deficits. SKIN: No rashes. LABORATORY DATA: CBC, CMP, essentially within normal limits and improved creatinine. LDL is 110. ASSESSMENT AND PLAN: 1. Acute myocardial infarction, ST elevation myocardial infarction, status post stenting of right coronary artery. 2. Hypertension. 3. Congestive heart failure, acute systolic dysfunction probably from acute myocardial infarction, well compensated without any exacerbation. 4. Anxiety disorder. 5. Hyperlipidemia. Plan is to continue with present medications. Continue to follow the patient. Possibility of discharge on Saturday. Hopefully his low ejection fraction is temporary from stunned myocardium due STEMI.
[2016-07-02] MEDS ORDERED: FUROSEMIDE 10 MG/ML 2 ML VIAL IV ONE (15:06)
[2016-07-02] MEDS: FUROSEMIDE 10 MG/ML 4 ML VIAL IV SCH ×2 (15:33→21:20)
--- NOTE | 2016-07-02 15:49 | XR ---
EXAMINATION TYPE: XR chest 1V DATE OF EXAM: 07/02/2016 3:01 PM CLINICAL HISTORY: Difficulty breathing progress study. TECHNIQUE: Single AP portable frontal view of the chest is obtained. COMPARISON: Chest x-ray from 3 days earlier FINDINGS: Cardiac silhouette size is stable and upper limits of normal. There is increasing central vascular congestion now felt present. There is no suspicious new focal airspace opacity, pleural effu maryuri, or pneumothorax seen. Osseous structures are intact. IMPRESSION: New mild central vascular congestion is noted, consider fluid overload state.
[2016-07-02] MEDS: ALPRAZolam 0.25 MG TAB PO PRN (21:32)
[2016-07-02] MEDS: ZOLPIDEM 5 MG TAB PO PRN (21:33)
[2016-07-02 21:50] VITALS: BP 145/80; PULSE 71; RESP 18; TEMP 98.5
--- NOTE | 2016-07-02 22:27 | DS ---
DATE OF ADMISSION: 06/29/2016 DATE OF DISCHARGE: The patient is a 61 -year-old male admitted ( ) myocardial infarction, found to have inferior wall myocardial infarction. The patient was bradycardic at that time and the patient underwent cardiac catheterization ( ) RCA and the patient has ejection fraction of around 20%. The patient was on Aldactone and katie inhibitor and ( ) Lasix. Because of the ejection fraction, cardiology recommended a life vest and the patient is on dual antiplatelet therapy and statin. Today, the patient has mildly ( ) and chest x-ray found to have pulmonary edema with elevated JVD. Patient was started on IV Lasix and the patient's family is requesting transfer to [facility]. The patient will be transferred today. The patient was seen and examined on the day of discharge. Vital signs stable. PHYSICAL EXAMINATION: GENERAL: The patient is alert and oriented x3, not in any acute distress. Well developed, well nourished. HEENT: Pupils are round and equally reacting to light. EOMI. No scleral icterus. No conjunctival pallor. Normocephalic, atraumatic. No pharyngeal erythema. No thyromegaly. CARDIOVASCULAR: S1 and S2 present. The patient has elevated JVD. The patient does have S3 as well. Does not have any pedal edema. PULMONARY: Chest is clear to auscultation, no wheezing or crackles. ABDOMEN: Soft, nontender, nondistended, normoactive bowel sounds. No palpable organomegaly. MUSCULOSKELETAL: No joint swelling or deformity. EXTREMITIES: No cyanosis, clubbing, or pedal edema. NEUROLOGICAL: Gross neurological examination did not reveal any focal deficits. SKIN: No rashes. FINAL DIAGNOSIS(ES): 1. ST elevation myocardial infarction status post cardiac catheterization and stenting of right coronary artery, ( ) to right coronary artery. 2. Hypertension, congestive heart failure. 3. Acute systolic dysfunction probably from acute myocardial infarction. Patient is in acute exacerbation at this point of time. 4. Anxiety disorder. 5. Hyperlipidemia. 6. Minimal elevated liver enzymes secondary to hepatic congestion. The patient presently is on the following medications: 1. Patient is on Tylenol. 2. Aspirin. 3. Atorvastatin. 4. Pepcid. 5. Lisinopril 10 mg oral daily. 6. Metoprolol 50 p.o. b.i.d. 7. Aldactone 25 p.o. daily. 8. Patient was started on Lasix 40 mg IV q.12 hourly. Spent greater than 35 minutes in total discharge process. The patient is being transferred to [facility].
== END 2016-07-03 00:05 | disposition short-term general hospital (02) | DRG 246 ==
LOC: EC 11:06 → 6ICU 11:25 → 6SEL 06-30 18:54
PROVIDERS: ADMIT Hospitalist; ATTEND Hospitalist
PROC: B2111ZZ Fluoroscopy of Multiple Coronary Arteries using Low Osmolar Contrast (ICD-10-PCS; 2016-06-29)
PROC: B2151ZZ Fluoroscopy of Left Heart using Low Osmolar Contrast (ICD-10-PCS; 2016-06-29)
PROC: 027036Z Dilation of Coronary Artery, One Artery with Three Drug-eluting Intraluminal Devices, Percutaneous Approach (ICD-10-PCS; principal; 2016-06-29 11:22)
PROC: 4A023N7 Measurement of Cardiac Sampling and Pressure, Left Heart, Percutaneous Approach (ICD-10-PCS; 2016-06-29 11:22)
DX: I21.19 ST elevation (STEMI) myocardial infarction involving other coronary artery of inferior wall (principal); I50.21 Acute systolic (congestive) heart failure; I47.2 Ventricular tachycardia; R00.1 Bradycardia, unspecified; I25.5 Ischemic cardiomyopathy; E78.5 Hyperlipidemia, unspecified; F17.210 Nicotine dependence, cigarettes, uncomplicated; F32.9 Major depressive disorder, single episode, unspecified; B35.3 Tinea pedis; I11.0 Hypertensive heart disease with heart failure; K76.1 Chronic passive congestion of liver; R53.1 Weakness; F41.9 Anxiety disorder, unspecified; Z82.49 Family history of ischemic heart disease and other diseases of the circulatory system; Z79.899 Other long term (current) drug therapy
CPT/HCPCS: 36415; 71010; 80048; 80053; 80061; 82550; 82553; 83036; 83735; 83880; 84132; 84484; 85025; 85049; 85610; 85730; 93005; 93306; 96374; 99285

== ENCOUNTER → 2019-09-08 | Outpatient (CLI) | payer BC ==
[2019-09-08 15:27] LABS: ALT 60 U/L (10-49); AST 24 U/L (14-35); African American GFR (CKD) 45.1 (60.0-200.0); Albumin/Globulin Ratio 1.91 (1.60-3.17); Alkaline Phosphatase 58 U/L (41-126); Bilirubin, Conjugated <0.20 mg/dL (0.20-0.40); Chol/HDL Ratio 8.19; Cholesterol 262 mg/dL (0-200); Globulin 2.2 g/dL (1.6-3.3); Non-African American GFR(CKD) 38.9 (60.0-200.0); Total Bilirubin 0.3 mg/dL (0.2-1.2); Total Protein 6.4 g/dL (6.2-8.2)
[2019-09-08 15:28] LABS: Carbon Dioxide 30.9 mmol/L (21.6-31.8); Chloride 104 mmol/L (96-109); Glucose 125 mg/dL (70-110); Potassium 5.1 mmol/L (3.5-5.5); Sodium 140 mmol/L (135-145)
== END | disposition home or self-care (01) ==
LOC: LABWHC1 08:12
PROVIDERS: ATTEND Internal Medicine
DX: I10 Essential (primary) hypertension (principal); E78.5 Hyperlipidemia, unspecified
CPT/HCPCS: 36415; 80051; 80061; 80076; 82565; 82947; 83721; 84520

== ENCOUNTER → 2019-12-11 | Outpatient (CLI) | payer BC ==
[2019-12-11 10:48] LABS: African American GFR (CKD) 45.1 (60.0-200.0); Non-African American GFR(CKD) 38.9 (60.0-200.0)
== END | disposition home or self-care (01) ==
LOC: LABWHC1 06:59
PROVIDERS: ATTEND Internal Medicine Cardiovascular Disease
DX: I42.8 Other cardiomyopathies (principal); I50.9 Heart failure, unspecified; I51.9 Heart disease, unspecified
CPT/HCPCS: 36415; 82565; 84520

== ENCOUNTER 2022-11-12 13:05 | Observation (INO) | payer BC, MEDICARE ==
[2022-11-12 13:22] VITALS: TEMP 99.5
[2022-11-12 14:13] LABS: Basophils # (A) 0.1 k/uL (0-0.2); Basophils % (A) 1 %; Eosinophils # (A) 0.2 k/uL (0-0.7); Eosinophils % (A) 2 %; HCT 46.9 % (39.0-53.0); Lymphocytes # (A) 1.2 k/uL (1.0-4.8); Lymphocytes % (A) 13 %; MCH 32.5 pg (25.0-35.0); MCHC 34.2 g/dL (31.0-37.0); MCV 95.2 fL (80.0-100.0); Monocytes # (A) 0.8 k/uL (0-1.0); Monocytes % (A) 8 %; Neutrophils % (A) 74 %; Platelet Count 181 k/uL (150-450); RBC 4.92 m/uL (4.30-5.90); RDW 12.6 % (11.5-15.5); WBC 9.5 k/uL (3.8-10.6)
[2022-11-12 14:21] LABS: Partial Thromboplastin Time 22.4 sec (22.0-30.0); Prothrombin Time 10.6 sec (9.0-12.0)
[2022-11-12 14:31] LABS: ALT 38 U/L (4-49); AST 28 U/L (17-59); African American GFR (CKD) 77 (>60 ml/min/1.73 sqM); Albumin 3.7 g/dL (3.5-5.0); Alkaline Phosphatase 63 U/L (38-126); Anion Gap 6 mmol/L; Blood Urea Nitrogen 21 mg/dL (9-20); Calcium 9.4 mg/dL (8.4-10.2); Carbon Dioxide 33 mmol/L (22-30); Chloride 96 mmol/L (98-107); Glucose 183 mg/dL (74-99); Magnesium 1.9 mg/dL (1.6-2.3); Non-African American GFR(CKD) 67 (>60 ml/min/1.73 sqM); Potassium 3.9 mmol/L (3.5-5.1); Sodium 135 mmol/L (137-145); Total Bilirubin 0.8 mg/dL (0.2-1.3); Total Protein 6.7 g/dL (6.3-8.2)
[2022-11-12 14:39] LABS: NT-Pro-B-Type Natriuretic Pept 534 pg/mL
[2022-11-12] MEDS ORDERED: IPRATROPIUM-ALBUTEROL 3 ML NEB INHALATION STA (15:13)
[2022-11-12] MEDS ORDERED: ALBUTEROL NEBULIZED 2.5 MG/3 ML INHALATION STA (15:13)
[2022-11-12] MEDS ORDERED: methylPREDNISolone SOD SUCCI 125 MG/2 ML VIAL IV STA (15:13)
--- NOTE | 2022-11-12 15:17 | ED ---
General Adult HPI - General Chief complaint: Shortness of Breath Stated complaint: Abnormal Labs Time Seen by Provider: 11/12/22 13:15 Source: patient, RN notes reviewed, old records reviewed Mode of arrival: ambulatory Limitations: no limitations - History of Present Illness Initial comments: 67-year-old male history of CAD presenting from the primary care office for evaluation of hypoxia. Patient had presented with chief complaint of cough and dyspnea. He denies diagnosis of COPD or asthma but states he was a former smoker and quit approximately 3 years ago. He denies fever. Denies chest pain. Denies lower extremity pain or swelling. He was found to be hypoxic in the 80s and sent to the emergency department for evaluation. He normally does not wear any oxygen. - Related Data Home Medications Medication Instructions Recorded Confirmed ALPRAZolam [Xanax] 1 mg PO DAILY PRN 06/29/16 06/29/16 terbinafine HCL [LamISIL] 250 mg PO DAILY 06/29/16 06/29/16 traZODone HCL 150 mg PO HS PRN 06/29/16 06/29/16 Allergies Allergy/AdvReac Type Severity Reaction Status Date / Time No Known Allergies Allergy Verified 11/12/22 13:22 Review of Systems ROS Statement: Those systems with pertinent positive or pertinent negative responses have been documented in the HPI. ROS Other: All systems not noted in ROS Statement are negative. Past Medical History Past Medical History: Hypertension Additional Past Medical History / Comment(s): toe fungal infection History of Any Multi-Drug Resistant Organisms: None Reported Past Surgical History: Hernia Repair Additional Past Surgical History / Comment(s): pins and screws in broken arm Past Anesthesia/Blood Transfusion Reactions: No Reported Reaction Past Psychological History: Anxiety Smoking Status: Former smoker Past Alcohol Use History: None Reported Past Drug Use History: None Reported - Past Family History Father Family Medical History: COPD Additional Family Medical History / Comment(s): Father of emphysema at the age of 63yrs. Mother Family Medical History: No Reported History Additional Family Medical History / Comment(s): Mother lived to be 91 yrs old. General Exam Limitations: no limitations General appearance: alert, in distress Head exam: Present: atraumatic, normocephalic Eye exam: Present: normal appearance, PERRL ENT exam: Present: normal exam Neck exam: Present: normal inspection. Absent: tenderness Respiratory exam: Present: respiratory distress, accessory muscle use, decreased breath sounds Cardiovascular Exam: Present: normal rhythm, tachycardia GI/Abdominal exam: Present: soft. Absent: distended, tenderness, guarding Extremities exam: Present: normal inspection, normal capillary refill. Absent: pedal edema Neurological exam: Present: alert, oriented X3, CN II-XII intact. Absent: motor sensory deficit Psychiatric exam: Present: normal affect, normal mood Skin exam: Present: warm, dry, intact Course Vital Signs 11/12/22 11/12/22 13:18 15:20 Temperature 99.5 F Pulse Rate 105 H 116 H Respiratory 24 19 Rate Blood Pressure 115/73 125/85 O2 Sat by Pulse 89 L 94 L Oximetry Medical Decision Making - Medical Decision Making Was pt. sent in by a medical professional or institution (JEANETH Negrete, PHLEBOTOMY SERVICES TECHNICIAN, urgent care, hospital, or [facility]...) When possible be specific @ -[Sent in by Dr. Osman Did you speak to anyone other than the patient for history (EMS, parent, family, police, friend...)? What history was obtained from this source @ -No Did you review nursing and triage notes (agree or disagree)? Why? @ -I reviewed and agree with nursing and triage notes Were old charts reviewed (outside hosp., previous admission, EMS record, old EKG, old radiological studies, urgent care reports/EKG's, [facility] records)? Report findings @ -No old charts were reviewed Differential Diagnosis (chest pain, altered mental status, abdominal pain women, abdominal pain men, vaginal bleeding, weakness, fever, dyspnea, syncope, headache, dizziness, GI bleed, back pain, seizure, CVA, palpatations, mental health, musculoskeletal)? @Differential Dyspnea: Coronary syndrome, arrhythmia, tamponade, asthma, COPD, pulmonary embolism, pneumonia, pneumothorax, pulmonary effusion, anaphylaxis, diabetic ketoacidosis, flailed chest, pulmonary contusion, diaphragmatic rupture, anemia, neuromuscular, this is not meant to be an all-inclusive list. EKG interpreted by me (3pts min.). @ -[Sinus tachycardia baseline artifact limiting assessment, no ST segment elevation, rate of 108, NE interval 178, QRS duration 105, QTC 396 X-rays interpreted by me (1pt min.). @ -[Chest x-ray negative for pneumothorax or focal pneumonia CT interpreted by me (1pt min.). @ -None done U/S interpreted by me (1pt. min.). @ -None done What testing was considered but not performed or refused? (CT, X-rays, U/S, labs)? Why? @ -None What meds were considered but not given or refused? Why? @ -None Did you discuss the management of the patient with other professionals (professionals i.e. , PA, PHLEBOTOMY SERVICES TECHNICIAN, lab, RT, psych nurse, social media marketer, education trainer, teacher, coastal/harbor defense officer, high risk case manager)? Give summary @ -[Case discussed with Dr. watters Was smoking cessation discussed for >3mins.? @ -No Was critical care preformed (if so, how long)? @ -No Were there social determinants of health that impacted care today? How? (Homelessness, low income, unemployed, alcoholism, drug addiction, transportation, low edu. Level, literacy, decrease access to med. care, custodial, rehab)? @ -No Was there de-escalation of care discussed even if they declined (Discuss DNR or withdrawal of care, Hospice)? DNR status @ -No What co-morbidities impacted this encounter? (DM, HTN, Smoking, COPD, CAD, Cancer, CVA, ARF, Chemo, Hep., AIDS, mental health diagnosis, sleep apnea, morbid obesity)? @ -[Prior smoking history, coronary artery disease Was patient admitted / discharged? Hospital course, mention meds given and route, prescriptions, significant lab abnormalities, going to OR and other pertinent info. @ -[67-year-old male with increased cough and dyspnea. History of tobacco use, no formal diagnosis COPD but I suspect this patient does have COPD. Chest x- ray is negative for focal pneumonia or pneumothorax. Patient has normal CBC, CMP shows elevated CO2, negative BNP. Troponin and d-dimer are pending. Case is discussed with Dr. Watters who will admit. Pulmonology will be placed on consult. Undiagnosed new problem with uncertain prognosis? @ -No Drug Therapy requiring intensive monitoring for toxicity (Heparin, Nitro, Insulin, Cardizem)? @ -No Were any procedures done? @ -No Diagnosis/symptom? @ -[COPD exacerbation with hypoxia Acute, or Chronic, or Acute on Chronic? @ -[Acute Uncomplicated (without systemic symptoms) or Complicated (systemic symptoms)? @ -default Side effects of treatment? @ -No Exacerbation, Progression, or Severe Exacerbation? @ -No Poses a threat to life or bodily function? How? (Chest pain, [place], [place], pneumonia, PE, COPD, DKA, ARF, appy, cholecystitis, CVA, Diverticulitis, Homicidal, Suicidal, threat to staff... and all critical care pts) @ -[Yes, hypoxia, respiratory failure - Lab Data Result diagrams: 11/12/22 13:55 11/12/22 13:55 Lab Results 11/12/22 11/12/22 11/12/22 Range/Units 13:55 13:55 13:55 WBC 9.5 (3.8-10.6) k/uL RBC 4.92 (4.30-5.90) m/uL Hgb 16.0 (13.0-17.5) gm/dL Hct 46.9 (39.0-53.0) % MCV 95.2 (80.0-100.0) fL MCH 32.5 (25.0-35.0) pg MCHC 34.2 (31.0-37.0) g/dL RDW 12.6 (11.5-15.5) % Plt Count 181 (150-450) k/uL MPV 8.0 Neutrophils % 74 % Lymphocytes % 13 % Monocytes % 8 % Eosinophils % 2 % Basophils % 1 % Neutrophils # 7.0 (1.3-7.7) k/uL Lymphocytes # 1.2 (1.0-4.8) k/uL Monocytes # 0.8 (0-1.0) k/uL Eosinophils # 0.2 (0-0.7) k/uL Basophils # 0.1 (0-0.2) k/uL PT 10.6 (9.0-12.0) sec INR 1.0 (<1.2) APTT 22.4 (22.0-30.0) sec Sodium 135 L (137-145) mmol/L Potassium 3.9 (3.5-5.1) mmol/L Chloride 96 L (98-107) mmol/L Carbon Dioxide 33 H (22-30) mmol/L Anion Gap 6 mmol/L BUN 21 H (9-20) mg/dL Creatinine 1.14 (0.66-1.25) mg/dL Est GFR (CKD-EPI)AfAm 77 (>60 ml/min/1.73 sqM) Est GFR (CKD-EPI)NonAf 67 (>60 ml/min/1.73 sqM) Glucose 183 H (74-99) mg/dL Plasma Lactic Acid Jose (0.7-2.0) mmol/L Calcium 9.4 (8.4-10.2) mg/dL Magnesium 1.9 (1.6-2.3) mg/dL Total Bilirubin 0.8 (0.2-1.3) mg/dL AST 28 (17-59) U/L ALT 38 (4-49) U/L Alkaline Phosphatase 63 (38-126) U/L NT-Pro-B Natriuret Pep 534 pg/mL Total Protein 6.7 (6.3-8.2) g/dL Albumin 3.7 (3.5-5.0) g/dL 11/12/22 Range/Units 13:55 WBC (3.8-10.6) k/uL RBC (4.30-5.90) m/uL Hgb (13.0-17.5) gm/dL Hct (39.0-53.0) % MCV (80.0-100.0) fL MCH (25.0-35.0) pg MCHC (31.0-37.0) g/dL RDW (11.5-15.5) % Plt Count (150-450) k/uL MPV Neutrophils % % Lymphocytes % % Monocytes % % Eosinophils % % Basophils % % Neutrophils # (1.3-7.7) k/uL Lymphocytes # (1.0-4.8) k/uL Monocytes # (0-1.0) k/uL Eosinophils # (0-0.7) k/uL Basophils # (0-0.2) k/uL PT (9.0-12.0) sec INR (<1.2) APTT (22.0-30.0) sec Sodium (137-145) mmol/L Potassium (3.5-5.1) mmol/L Chloride (98-107) mmol/L Carbon Dioxide (22-30) mmol/L Anion Gap mmol/L BUN (9-20) mg/dL Creatinine (0.66-1.25) mg/dL Est GFR (CKD-EPI)AfAm (>60 ml/min/1.73 sqM) Est GFR (CKD-EPI)NonAf (>60 ml/min/1.73 sqM) Glucose (74-99) mg/dL Plasma Lactic Acid Jose 1.2 (0.7-2.0) mmol/L Calcium (8.4-10.2) mg/dL Magnesium (1.6-2.3) mg/dL Total Bilirubin (0.2-1.3) mg/dL AST (17-59) U/L ALT (4-49) U/L Alkaline Phosphatase (38-126) U/L NT-Pro-B Natriuret Pep pg/mL Total Protein (6.3-8.2) g/dL Albumin (3.5-5.0) g/dL Disposition Clinical Impression: Acute exacerbation of chronic obstructive pulmonary disease Disposition: ADMITTED IP TO THIS HOSP Condition: Stable Is patient prescribed a controlled substance at d/c from ED?: No Referrals: Reji Osman MD [Primary Care Provider] - 1-2 days Time of Disposition: 15:34
[2022-11-12 15:21] VITALS: BP 125/85; RESP 19
--- NOTE | 2022-11-12 15:25 | XR ---
EXAMINATION TYPE: XR chest 2V DATE OF EXAM: 11/12/2022 COMPARISON: 07/02/2016 TECHNIQUE: PA and lateral views submitted. HISTORY: Hypoxia FINDINGS: The lungs are clear and there is no pneumothorax, pleural effusion, or focal pneumonia. Heart size normal and no overt failure. Osseous structures demonstrate hypertrophic and degenerative changes of the spine. AC joint arthropat hy. Hyperinflation. Pulmonary arteries enlarged. Prominent left hilum. IMPRESSION: 1. No acute process. 2. Correlate for COPD and pulmonary arterial hypertension. There is prominence of the left hilum whic h could be followed up with short-term CT of the chest.
[2022-11-12] MEDS ORDERED: IPRATROPIUM-ALBUTEROL 3 ML NEB INHALATION PRN (15:31)
[2022-11-12] MEDS ORDERED: NALOXONE 0.4 MG/ML 1 ML VIAL IVP PRN (15:31)
[2022-11-12] MEDS ORDERED: IPRATROPIUM-ALBUTEROL 3 ML NEB INHALATION SCH (16:00)
[2022-11-12 16:08] VITALS: PULSE 111
[2022-11-12] MEDS ORDERED: methylPREDNISolone SOD SUCCI 125 MG/2 ML VIAL IV SCH (18:00)
--- NOTE | 2022-11-12 22:19 | P.HPIM ---
History of Present Illness Please note patient was discharge but left AMA from emergency room Please consider this note as combined H&P and discharge summary This is a pleasant 67 years old male with past medical history of hypertension Patient presents with respiratory symptoms. I discussed the case with the admitting physician Dr. Pato Slaughter who gave the patient admitted to me. On his visit to emergency room before patient finish for workup. I went to see the patient states and he came because mainly of cough and white phlegm which was been going on for 2 days and was bothering him and that was the nares and he came to the hospital. Abdiaziz in the patient declines to me feeling dyspneic, no exertional dyspnea and he declines any chest pain. Also I reviewed systems with him and denies any other new GI urinary or neurological symptoms as below Patient he used to smoke cigarettes and he quit about 4 years ago and he smoked for about 20-30 years. He declines alcohol or illicit drugs. He states that his PCP is Dr. Osman and java core developer is Dr. Handley and he has sustained in his heart 7 years ago. Currently he is taking baby aspirin On examination I noticed that he has decreased air entry in both sides however patient was fully awake and oriented to time place and person, sitting up in bed, looks comfortable relaxed not in respiratory distress oxygen cannula was on. Other Exam was unremarkable. I talked to the patient that he is going to be admitted to the hospital. Patient declined wanted to be admitted to the hospital in the first place. I gave Dr. Slaughter this information that patient does not want to be admitted to the hospital, told me he is going to talk to him to admit him to be admitted to the hospital because he is hypoxic with oxygen saturation about 80% I want to review the charge when he came back to check on the patient he was already left AMA before I have a chance to talk to him again. Based upon my evaluation area patient has capacity to make medical decision Review of Systems Review of systems CONSTITUTIONAL: No fever, no malaise, no fatigue. HEENT: No recent visual problems or hearing problems. Denied any sore throat. CARDIOVASCULAR: No orthopnea, PND, no palpitations, no syncope. PULMONARY: No chest wall tenderness, no hemoptysis. GASTROINTESTINAL: No diarrhea, no nausea, no vomiting, no abdominal pain. Normoactive bowel sounds. NEUROLOGICAL: No headaches, no weakness, no numbness. HEMATOLOGICAL: Denies any bleeding or petechiae. GENITOURINARY: Denies any burning micturition, frequency, or urgency. MUSCULOSKELETAL/RHEUMATOLOGICAL: Denies any joint pain, swelling, or any muscle pain. ENDOCRINE: Denies any polyuria or polydipsia. Past Medical History Past Medical History: Hypertension Additional Past Medical History / Comment(s): toe fungal infection History of Any Multi-Drug Resistant Organisms: None Reported Past Surgical History: Hernia Repair Additional Past Surgical History / Comment(s): pins and screws in broken arm Past Anesthesia/Blood Transfusion Reactions: No Reported Reaction Past Psychological History: Anxiety Smoking Status: Former smoker Past Alcohol Use History: None Reported Past Drug Use History: None Reported - Past Family History Father Family Medical History: COPD Additional Family Medical History / Comment(s): Father of emphysema at the age of 63yrs. Mother Family Medical History: No Reported History Additional Family Medical History / Comment(s): Mother lived to be 91 yrs old. Medications and Allergies Home Medications Medication Instructions Recorded Confirmed Type ALPRAZolam [Xanax] 1 mg PO DAILY PRN 06/29/16 06/29/16 History terbinafine HCL [LamISIL] 250 mg PO DAILY 06/29/16 06/29/16 History traZODone HCL 150 mg PO HS PRN 06/29/16 06/29/16 History Albuterol Inhaler [Ventolin Hfa 1 - 2 puff INHALATION Q4HR PRN #1 11/12/22 Rx Inhaler] each Azithromycin [Zithromax Z Pack] 1 tab PO DIRECTED #6 tab 11/12/22 Rx predniSONE 50 mg PO DAILY #5 tab 11/12/22 Rx Allergies Allergy/AdvReac Type Severity Reaction Status Date / Time No Known Allergies Allergy Verified 11/12/22 13:22 Physical Exam Vitals: Vital Signs Temp Pulse Resp BP Pulse Ox 11/12/22 16:07 111 H 11/12/22 15:48 112 H 11/12/22 15:20 116 H 19 125/85 94 L 11/12/22 13:18 99.5 F 105 H 24 115/73 89 L Intake and Output 11/12/22 11/12/22 11/12/22 06:59 14:59 22:59 Other: Weight 115.212 kg GENERAL: The patient is alert and oriented x3, not in any acute distress. Well developed, well nourished. HEENT: Pupils are round and equally reacting to light. EOMI. No scleral icterus. No conjunctival pallor. Normocephalic, atraumatic. No pharyngeal erythema. No thyromegaly. CARDIOVASCULAR: S1 and S2 present. No murmurs, rubs, or gallops. -PULMONARY: Chest is clear to auscultation, no wheezing , no crackles. mild Decreased air entry on both sides ABDOMEN: Soft, nontender, nondistended, normoactive bowel sounds. No palpable organomegaly. MUSCULOSKELETAL: No joint swelling or deformity. EXTREMITIES: No cyanosis, clubbing, or pedal edema. NEUROLOGICAL: Gross neurological examination did not reveal any focal deficits. SKIN: No rashes. no petechiae. Results CBC & Chem 7: 11/12/22 13:55 11/12/22 13:55 Labs: Abnormal Lab Results - Last 24 Hours (Table) 11/12/22 Range/Units 13:55 Sodium 135 L (137-145) mmol/L Chloride 96 L (98-107) mmol/L Carbon Dioxide 33 H (22-30) mmol/L BUN 21 H (9-20) mg/dL Glucose 183 H (74-99) mg/dL Assessment and Plan Assessment: Cough and phlegm 2 days, could be upper respiratory versus lower respiratory symptoms or infection Decreased air entry on both sides suspicious for mild acute COPD exacerbation. Suspected hypoxia and emergency room Nicotine dependence Obesity with BMI of 29.4 Plan: He is not patient left AMA from emergency room shortly after I started seeing the patient and evaluating him. Please note patient's left AMA before have a chance to talk to him again. However based upon my evaluation with him patient has capacity to make medical decision. He had orientation to Place person, he had inside into his illness, he can appreciate benefits and risks. And he follows commands appropriately and he has logic conversation. He denies any suicidal ideation hallucination or delusions.
== END 2022-11-12 18:32 | disposition left against medical advice (07) ==
LOC: EC 13:05 → INTOOBSV 15:31 → 4SSUR 15:31 → UNDODISIN 18:32
PROVIDERS: ADMIT Internal Medicine; ATTEND Internal Medicine
DX: J44.1 Chronic obstructive pulmonary disease with (acute) exacerbation (principal); I10 Essential (primary) hypertension; F41.9 Anxiety disorder, unspecified; I25.10 Atherosclerotic heart disease of native coronary artery without angina pectoris; E66.9 Obesity, unspecified; Z68.29 Body mass index [BMI] 29.0-29.9, adult; Z87.891 Personal history of nicotine dependence; Z79.899 Other long term (current) drug therapy; Z82.5 Family history of asthma and other chronic lower respiratory diseases; Z53.29 Procedure and treatment not carried out because of patient's decision for other reasons
CPT/HCPCS: 96374; 99285; 36415; 94640; 93005; 85379; 83880; 80053; 83605; 83735; 84484; 85025; 85610; 85730; 71046; G0378; J2930

== ENCOUNTER → 2022-11-15 | Outpatient (CLI) | payer MEDICARE ==
--- NOTE | 2022-11-15 12:04 | CT ---
EXAMINATION TYPE: CT chest w con CT DLP: 643.4 mGycm, Automated exposure control for dose reduction was used. DATE OF EXAM: 11/15/2022 11:45 AM COMPARISON: Chest radiograph from 11/12/2022 CLINICAL INDICATION:Male, 67 years old with history of R91.8 abnormal findings lung field; PHH, Abnor mal findings of lung field TECHNIQUE: Multiple axial images were obtained through the chest following the administration of 100 cc of Isovue 300. . Coronal and sagittal reformats reviewed. FINDINGS: LUNGS/ PLEURA: No pleural effusion or pneumothorax. 8 millimeter pulmonary nodule within the superior segment of the right lower lobe (series 4, image 24). Right lower lobe medial 2.1 cm focal consolida tion (series 4, image 55). Mild centrilobular emphysematous changes. Bilateral lower lobe associated atelectasis. AIRWAY: Patent and unremarkable.. HEART: Size within normal limits. No pericardial effusion. Mild RCA calcifications. MEDIASTINUM: No pathologically enlarged lymphadenopathy. VASCULATURE: No aortic aneurysm. MUSCULOSKELETAL: No acute osseous abnormalities. No aggressive osseous lesion. SOFT TISSUES/LYMPH NODES: Unremarkable. LOWER NECK: No significant findings. UPPER ABDOMEN: Contracted gallbladder with cholelithiasis. Left renal cysts. Geographic region of low attenuation throughout the right hepatic lobe with right inferior hepatic lobe 2.7 cm hyperattenuati ng region (series 3, image 84). IMPRESSION: 1. Right lower lobe 7 mm pulmonary nodule with additional focal consolidation possibly representing a telectasis. CT chest in 6-12 months is recommended. 2. Cholelithiasis. 3. Geographic region of low attenuation throughout the right hepatic lobe with additional 2.0 cm hype rattenuating region in the right hepatic lobe. The low attenuation probably represents fatty infiltra tion. The hypertension region may represent focal fatty sparing versus hemangioma versus other etiolo gies. Further evaluation with MR abdomen (liver mass protocol) is recommended.
== END | disposition home or self-care (01) ==
LOC: RADCTMAIN 10:42
PROVIDERS: ATTEND Family Medicine
DX: R91.8 Other nonspecific abnormal finding of lung field (principal); K80.20 Calculus of gallbladder without cholecystitis without obstruction
CPT/HCPCS: 71260; Q9967

== ENCOUNTER → 2023-02-05 | Outpatient (CLI) | payer MEDICARE ==
--- NOTE | 2023-02-05 12:18 | MR ---
EXAMINATION TYPE: MR liver wo/w con DATE OF EXAM: 02/05/2023 10:24 AM CLINICAL INDICATION:Male, 68 years old with history of R16.0 HEPATOMEGALY, NOT ELSEWHERE CLASSIFIED; [facility], COMPARISON: CT scan abdomen from 11/15/2022. TECHNIQUE: Multiplanar multi-sequence imaging was performed without contrast. Post contrast imaging was performed. Post IV contrast subtraction images were also submitted for review. IV Contrast: 11 cc Gadavist. FINDINGS: LOWER CHEST: The heart is mildly enlarged for size. ABDOMEN Liver: No evidence for hepatic steatosis or cirrhosis. Findings compatible with geographic fatty infi ltration of predominantly the right hepatic lobe with sparing of the left hepatic lobe. There is some intrinsic high T1 signal in the left hepatic lobe which may have mild transient hepatic attenuation differences which seems to become more isointense to the rest liver on delayed imaging Gallbladder an d Bile ducts: No evidence for ductal dilation, or biliary stricture or evidence of choledocholithiasi s. The gallbladder is within normal limits. Pancreas: No ductal dilation. No evidence for solid mass. Spleen: Normal for size. Adrenal glands: Unremarkable. Kidneys: No evidence for obstructive uropathy. No suspicious renal masses. No suspicious masses. Ther e is nonenhancing renal cysts bilaterally. Some of the renal cysts may have been septations on the ri ght. Left mid kidney 18 mm high T1 signal pronation/hemorrhagic cyst. Additional subcentimeter bilate ral high T1 intrinsic signal cysts bilaterally. Stomach and Bowel: No evidence for bowel wall thickening or evidence for obstruction. Scattered colon ic diverticula present. Peritoneum: No evidence of pneumoperitoneum or free fluid. Vasculature: No aortic aneurysm. Musculoskeletal: The osseous structures appear intact. Lymph Nodes: No gross evidence for lymphadenopathy. Abdominal wall: Unremarkable. IMPRESSION: 1. Findings on prior CT correlate with geographic fatty infiltration the liver. No suspicious liver lesions. 2. Bilateral Bosniak type I and type II renal cyst.
== END | disposition home or self-care (01) ==
LOC: RADMRIMAIN 09:14
PROVIDERS: ATTEND Family Medicine
DX: N28.1 Cyst of kidney, acquired (principal); R16.0 Hepatomegaly, not elsewhere classified
CPT/HCPCS: 74183; A9585